=== PATIENT | female | born 1975 | race Caucasian/White ===

== ENCOUNTER 2023-01-19 08:51 | Emergency (ER) | payer BC, OTHER ==
[~2023-01-19] VITALS: Ht 162.6 cm; Wt 100.4 kg
[2023-01-19 09:33] VITALS: BP 144/91; PULSE 100; RESP 18; O2SAT 98
[2023-01-19] MEDS ORDERED: ACETAMINOPHEN 500 MG TAB PO ONE (10:00)
[2023-01-19 10:14] VITALS: TEMP 97.8
== END 2023-01-19 10:41 | disposition home or self-care (01) ==
LOC: ER 08:51
DX: S86.012A Strain of left Achilles tendon, initial encounter (principal); Z88.8 Allergy status to other drugs, medicaments and biological substances; W21.09XA Struck by other hit or thrown ball, initial encounter; Y93.89 Activity, other specified; Y92.89 Other specified places as the place of occurrence of the external cause; Y99.8 Other external cause status
CPT/HCPCS: 29515; 73630